=== PATIENT | male | born 1995 | race Two or more races ===

== ENCOUNTER 2019-03-25 16:25 | Emergency (ER) | payer SELFPAY ==
[~2019-03-25] VITALS: Ht 185.4 cm; Wt 104.5 kg
[2019-03-25 16:37] VITALS: BP 121/61; Ht 185.4 cm; Wt 104.5 kg
[2019-03-25] MEDS ORDERED: HYDROCODON-ACE1 EA10 PO (18:46)
== END 2019-03-25 18:59 | disposition home or self-care (01) ==
LOC: EDBD 16:25 → D.ER 16:25
DX: S62.306A Unspecified fracture of fifth metacarpal bone, right hand, initial encounter for closed fracture (principal); V19.88XA Pedal cyclist (driver) (passenger) injured in other specified transport accidents, initial encounter; F17.210 Nicotine dependence, cigarettes, uncomplicated

== ENCOUNTER 2019-06-01 02:32 | Emergency (ER) | payer SELFPAY ==
[~2019-06-01] VITALS: Ht 185.4 cm; Wt 110.0 kg
[~2019-06-01 02:32] MED LIST: HYDROCODON-ACE1 EA10 PO
[2019-06-01 02:41] VITALS: Ht 185.4 cm; Wt 110.0 kg
[2019-06-01 03:55] LABS: BASOPHILS 0.2 % (0-2); HEMATOCRIT 39.4 % (42.0-54.0); HEMOGLOBIN 13.1 g/dL (13.5-17.5); IMMATURE GRANULOCYTES 0.2 % (0-5); LYMPHOCYTES 31.1 % (15-50); MCHC 33.2 g/dL (31.0-37.0); MCV 93.1 fL (80.0-100.0); MEAN PLATELET VOLUME 10.1 fL (7.4-10.4); MONOCYTES 15.6 % (2-11); NEUTROPHILS 50.9 % (40-80); PLATELET COUNT 250 10x3/uL (130-400); RBC 4.23 10x6/uL (4.20-6.10)
[2019-06-01 04:05] LABS: CALC OSMOLALITY 290 mosm/kg (275-300); CALCIUM 8.9 mg/dL (8.5-10.1); CARBON DIOXIDE 28.7 mmol/L (21.0-32.0); CHLORIDE - SERUM 109 mmol/L (98-107); GLUCOSE 112 mg/dL (74-106); SODIUM 145 mmol/L (136-145); UREA NITROGEN 15 mg/dL (7-18); eGFR NON AFRICAN AMERICAN > 90 mL/min (90-120)
[2019-06-01 04:11] LABS: ALBUMIN 3.7 g/dL (3.4-5.0); ALKALINE PHOSPHATASE 113 U/L (46-116); ALT (SGPT) 36 U/L (10-68); BILIRUBIN - TOTAL 0.32 mg/dL (0.2-1.3); PROTEIN - SERUM 7.4 g/dL (6.4-8.2)
[2019-06-01] MEDS ORDERED: HYDROCODON-ACE1 EAC7 PO (06:52)
[2019-06-01 06:59] VITALS: BP 131/83
== END 2019-06-01 07:01 | disposition home or self-care (01) ==
LOC: D.ER 02:32
PROVIDERS: Emergency Medicine
DX: K44.9 Diaphragmatic hernia without obstruction or gangrene (principal); R07.89 Other chest pain